=== PATIENT | male | born 1955 | race Two or more races ===

== ENCOUNTER 2021-09-10 19:32 | Emergency (ER) | payer OTHER ==
[~2021-09-10] VITALS: Ht 170.2 cm; Wt 74.8 kg
[2021-09-10 22:21] VITALS: BP 193/97
[2021-09-10 22:32] LABS: Basophils # (auto) 0.1 10 ^3/uL (0-0.2); Basophils % (auto) 0.7 % (0.0-2.0); Eosinophils # (auto) 0.3 10 ^3/uL (0-0.8); Eosinophils % (auto) 3.3 % (0.0-7.0); Hematocrit 40.7 % (41.0-53.0); Hemoglobin 13.7 g/dL (13.5-17.5); Lymphocytes # (auto) 1.5 10 ^3/uL (0.4-5.4); Lymphocytes % (auto) 15.2 % (10.0-50.0); Mean Corpuscular Hemoglobin 31.9 pg (28.0-32.0); Mean Corpuscular Hgb Conc. 33.7 g/dL (32.0-36.0); Mean Corpuscular Volume 94.8 fL (80.0-100.0); Monocytes # (auto) 1.1 10 ^3/uL (0-1.3); Monocytes % (auto) 10.9 % (0.0-12.0); Neutrophils # (auto) 6.7 10 ^3/uL (1.6-8.6); Neutrophils % (auto) 69.9 % (37.0-80.0); Nucleated Red Blood Cells % 0.1 %; Red Blood Cells 4.29 10^6/uL (4.5-5.90); Red Cell Distribution Width 12.3 % (11.8-14.3); White Blood Cell 9.6 10^3/uL (4.4-10.8)
[2021-09-10 22:41] LABS: Urine Bacteria NONE SEEN /hpf (None Seen); Urine Blood Negative /uL (Negative); Urine Specific Gravity 1.002 (1.001-1.035); Urine WBC <1 /hpf (0 - 3)
[2021-09-10 22:46] LABS: Alcohol, Urine < 3.0 mg/dL (0-10); Amphetamine Screen, Urine NEGATIVE (NEGATIVE); Barbiturate Scree,Urine NEGATIVE (NEGATIVE); Benzodiazephine Screen, Urine NEGATIVE (NEGATIVE); Cannabinoid Screen, Urine NEGATIVE (NEGATIVE); Cocaine Screen, Urine NEGATIVE (NEGATIVE); Opiate Scree,Urine NEGATIVE (NEGATIVE); Phencyclidine Screen, Urine NEGATIVE (NEGATIVE)
[2021-09-10 22:46] LABS: Albumin 3.8 g/dL (3.4-5.0); Calcium 8.4 mg/dL (8.5-10.1)
[2021-09-10 22:51] LABS: BUN/Creatinine Ratio 7.5; Bilirubin, Total 0.5 mg/dL (0.2-1.0); Magnesium 2.1 mg/dL (1.6-2.6); Total Protein 7.8 g/dL (6.4-8.2)
== END 2021-09-10 22:37 | disposition short-term general hospital (02) ==
LOC: ER 19:32
DX: R41.82 Altered mental status, unspecified (principal); Z20.822 Contact with and (suspected) exposure to COVID-19
CPT/HCPCS: 36415; 70450; 71045; 80053; 80307; 80320; 81001; 83735; 85025; 86850; 86900; 86901; 87426; 93005; 96365

== ENCOUNTER 2025-01-17 13:27 | Emergency (ER) | payer MEDICARE, MEDICAID ==
[~2025-01-17] VITALS: Ht 175.3 cm; Wt 68.2 kg
--- NOTE | 2025-01-17 13:42 | ED.PDOC ---
History of Present Illness HPI Comments 69 year old male presents to the ED via EMS with a chief complaint of enlarged lymph node onset 3 days. Per EMS, patient had dental extraction about 2 weeks ago, since then was experiencing mild discomfort and for the past 3 days noticed swelling and pain worsened. states for the past 2 months patient has been experiencing unexplained weight loss. This morning, patient states pain worsen, experiencing syncopal episode witnessed by , an episode of nausea. Upon EMS arrival, BP was 70/35, 500 ccs fluids was given in route, BP improved to 117 systolic. Patient states he does not want to be admitted, requesting prescription of antibiotics, wants to sign out AMA. PMHx CVA RT side deficits. No other symptoms or modifying factors present at this time. Time Seen by MD: 13:30 Reviewed Notes: Medications, Allergies Allergies: Coded Allergies: NO KNOWN ALLERGIES (Unverified , 09/10/21) Information Source: Patient, Emergency Med Personnel, Spouse Mode of Arrival: EMS Severity: Moderate Timing: Days Duration: Since onset Prehospital treatment: None Past Medical History PAST MEDICAL HISTORY: CVA Surgical History (Other): knee surgery Family History Family History: Reviewed,noncontributory to illness Social History Smoker: Non-Smoker Alcohol: Denies ETOH Use Drugs: Denies Drug Use Lives In: Home EENTM: reports: others (enalrged lymph node); denies: blurred vision, double vision, ear bleeding, ear discharge, ear drainage, ear pain, ear ringing, eye pain, eye redness, hearing loss, mouth pain, mouth swelling, nasal discharge, nose bleeding, nose congestion, nose pain, photophobia, tearing, throat pain, throat swelling, voice changes Respiratory: denies: cough, hemoptysis, orthopnea, SOB at rest, shortness of breath, SOB with excertion, stridor, wheezing, others Cardiovascular: denies: chest pain, dizzy spells, diaphoresis, Dyspnea on exertion, edema, irregular heart beat, left arm pain, lightheadedness, palpitations, PND, syncope, others Gastrointestinal: denies: abdomen distended, abdominal pain, blood streaked bowels, constipated, diarrhea, dysphagia, difficulty swallowing, hematemesis, melena, nausea, poor appetite, poor fluid intake, rectal bleeding, rectal pain, vomiting, others Genitourinary: denies: burning, dysuria, flank pain, frequency, hematuria, incontinence, penile discharge, penile sore, pain, testicle pain, testicle swelling, urgency, others Neurological: reports: others (syncope); denies: dizziness, fainting, headache, left sided numbness, left sided weakness, numbness, paresthesia, pre-existing deficit, right sided numbness, right sided weakness, seizure, speech problems, tingling, tremors, weakness Musculoskeletal: denies: back pain, gout, joint pain, joint swelling, muscle pain, muscle stiffness, neck pain, others Integumetry: denies: bruises, change in color, change in hair/nails, dryness, laceration, lesions, lumps, rash, wounds, others Allergic/Immunocompromised: denies: Difficulty Healing, Frequent Infections, Hives, Itching, others Hematologic/Lymphatic: denies: anemia, blood clots, easy bleeding, easy bruising, swollen glands, others Endocrine: denies: excessive hunger, excessive sweating, excessive thirst, excessive urination, flushing, intolerance to cold, intolerance to heat, unexplained weight gain, unexplained weight loss, others Psychiatric: denies: anxiety, bipolar disorder, depression, hopeless, panic disorder, schizophrenia, sleepless, suicidal, others All Other Systems: Reviewed and Negative Physical Exam General Appearance: Moderate Distress, Normal HEENT: Normal ENT Inspection, Pharynx Normal, TMs Normal Neck: Full Range of Motion, Other (Lymph gland submandibular enlarged) Respiratory: Chest Non-Tender, Lungs Clear, No Accessory Muscle Use, No Respiratory Distress, Normal Breath Sounds Cardiovascular: No Edema, No JVD, No Murmur, No Gallop, Normal Peripheral Pulses, Regular Rate/Rhythm Breast Exam: Deferred Gastrointestinal: No Organomegaly, Non Tender, No Pulsatile Mass, Normal Bowel Sounds, Soft Genitalia: Deferred Pelvic: Deferred Rectal: Deferred Extremities: No calf tenderness, Normal capillary refill, Normal inspection, Normal range of motion, Non-tender, No pedal edema Musculoskeletal : Apperance: Normal Neurologic: Alert, solder leveler printed circuit boards II-XII nml as Tested, No Motor Deficits, Normal Affect, Normal Mood, No Sensory Deficits Cerebellar Function: NOT DONE Reflexes: NOT DONE Skin: Dry, Normal Color, Warm Peripheral Pulses: 3+ Radial (R), 3+ Radial (L) Lymphatic: No Adenopathy Was a procedure done? Was a procedure done?: No Differential Dx Considerations may include: Lymphangitis Dental abscess X-Ray, Labs, Meds, VS Vital Signs Date Time Temp Pulse Resp B/P (MAP) Pulse Ox O2 Delivery O2 Flow Rate FiO2 01/17/25 14:16 71 18 98 Room Air* 0 21 01/17/25 14:16 98.2 71 18 136/69 (91) 98 98.2 01/17/25 13:30 97.7 65 18 114/54 (74) 97 97.7 Current Medications Medications (Trade) Dose Ordered Sig/Marilee Route Start Time Stop Time Status Last Admin Ceftriaxone Sodium 50 ml @ 100 mls/hr ONCE ONCE IV 01/17/25 13:45 01/17/25 14:14 DC 01/17/25 14:05 Patient alert pain Came in because of swelling left side of neck. All started after dental procedure. Vitals stable. Insists on leaving. Was given Rocephin. Was given clindamycin. Was given prescription of Augmentin antibiotic. Explained to the patient to be transferred to maxillofacial. Family insisted on going home. Time of 1ST Reevaluation: 14:00 Reevaluation 1ST: Unchanged Patient Education/Counseling: Diagnosis, Treatment, Prognosis Family Education/Counseling: Diagnosis, Treatment, Prognosis SEPSIS Sepsis Screen Physician Orders Clindamycin 300mg Iv (Cleocin Iv) (01/17/25 13:45) Vital Signs Date Time Temp Pulse Resp B/P (MAP) Pulse Ox O2 Delivery O2 Flow Rate FiO2 01/17/25 14:16 71 18 98 Room Air* 0 21 01/17/25 14:16 98.2 71 18 136/69 (91) 98 98.2 01/17/25 13:30 97.7 65 18 114/54 (74) 97 97.7 Medications Medications Dose Ordered Sig/Marilee Route Start Time Stop Time Status Last Admin Dose Admin Ceftriaxone Sodium 50 ml @ 100 mls/hr ONCE ONCE IV 01/17/25 13:45 01/17/25 14:14 DC 01/17/25 14:05 Departure 1 Departure Time of Disposition: 14:23 Impression: Primary Impression: Dental abscess Disposition: LEFT AGAINST MEDICAL ADVICE Condition: Good e-Prescriptions Amoxicillin & Pot Clavulanate (AUGMENTIN TABLET) 875 Mg Tb 875 MG PO BID for 10 Days, #20 TAB Prov: HEATHER SANDHU MD 01/17/25 Discharged With: Self Critical Care Note Critical Care Time?: No Stability Stability form required: No Heart Score Heart Score: Heart Score Response (Comments) Value History N/A 0 EKG N/A 0 Age N/A 0 Risk Factors N/A 0 Troponin N/A 0 Total 0 I personally scribed for HEATHER SANDHU MD ([email or web address]) on 01/17/25 at 13:42. Electronically submitted by Keli Manrique ([email or web address]). HEATHER SANDHU MD Jan 17, 2025 13:42
[2025-01-17] MEDS: cefTRIAXone 1GM/50ML D5W 50 ML IV ONE (14:05)
[2025-01-17 14:16] VITALS: BP 136/69; PULSE 71; RESP 18; TEMP 98.2; O2SAT 98
[2025-01-17] MEDS ORDERED: AUG875T PO (14:24)
[2025-01-17] MEDS: CLINDAMYCIN 300MG IV 50 ML IV ONE (14:44)
[2025-01-17] MEDS: KETOROLAC TROMETH 30 MG/ML 1ML VIAL IV ONE (14:59)
== END 2025-01-17 15:45 | disposition left against medical advice (07) ==
LOC: EDBD 13:27 → ER 13:27
DX: K04.7 Periapical abscess without sinus (principal); Z86.73 Personal history of transient ischemic attack (TIA), and cerebral infarction without residual deficits; Z98.890 Other specified postprocedural states
CPT/HCPCS: 96365; 96367; 96375; 99284; J0696; J1885; J3490

== ENCOUNTER 2025-01-23 21:27 | Emergency (ER) | payer MEDICARE, MEDICAID ==
[~2025-01-23] VITALS: Ht 170.2 cm; Wt 63.0 kg
[~2025-01-23 21:27] MED LIST: AUG875T PO
[2025-01-23 21:58] VITALS: PULSE 54; RESP 14; O2SAT 100
--- NOTE | 2025-01-23 22:32 | ED.PDOC ---
History of Present Illness HPI Comments 69 y/o M with history of CVA w/right sided deficits BIBA from home for near syncopal episode. Per EMS report, called after witnessing the patient having a near-syncopal episode after becoming dizzy and sitting down on the bed. Pt reportedly did not lose consciousness. Pt states he felt dizzy, fell onto his side on the bed, spilling a glass of water he was holding. Pt denies injury or LOC. EMS reports patient was bradycardic and hypotensive initially and was given 500ml NS bolus en route. Patient was seen in this ED on 01/17/25 for a mass in his right submandibular area that he stated began after a dental procedure 2 weeks prior. [place] was recommended for [place] [facility] [place]. He was txed in ED with IV abx and prescribed augmentin. Pt currently complains of headache. He denies having any current new focal weakness, dizziness, lightheadedness, fever, chills, or other associated symptoms. Chief Complaint: Syncope Time Seen by MD: 21:30 Reviewed Notes: Nurses Notes, Kier Boiler Notes, Medications, Allergies Allergies: Coded Allergies: NO KNOWN ALLERGIES (Unverified , 09/10/21) Home Meds Active Scripts Amoxicillin & Pot Clavulanate (AUGMENTIN TABLET) 875 Mg Tb, 875 MG PO BID for 10 Days, #20 TAB Prov:HEATHER SANDHU MD 01/17/25 Information Source: Patient, Emergency Med Personnel Mode of Arrival: EMS Severity: Moderate Timing: Hours Duration: Since onset Prehospital treatment: None Past Medical History PAST MEDICAL HISTORY: CVA (right-sided deficits ) Past Medical History (Other): left-lower jaw mass Surgical History (Other): knee Family History Family History: Reviewed,noncontributory to illness Social History Smoker: Non-Smoker Alcohol: Denies ETOH Use Drugs: Denies Drug Use Lives In: Home All Other Systems: Reviewed and Negative (Comprehensive review of systems are negative unless otherwise stated in HPI) Physical Exam General Appearance: No Apparent Distress HEENT: PERRL/EOMI, Pharynx Normal Neck: Full Range of Motion, Other (firm/tender L mandibular/submandibular mass extending to L lateral neck. No erythema, fluctuance or d/c.) Respiratory: Lungs Clear, No Accessory Muscle Use, No Respiratory Distress, Normal Breath Sounds Cardiovascular: No Edema, No JVD, Regular Rate/Rhythm Breast Exam: Deferred Gastrointestinal: Non Tender, Soft Genitalia: Deferred Pelvic: Deferred Rectal: Deferred Extremities: Normal inspection, Normal range of motion, Non-tender, No pedal edema Neurologic: Alert (Oriented x4), Normal Affect, Normal Mood, Other (moves all extremities, no facial droop or dysarthria) Cerebellar Function: NOT DONE Reflexes: NOT DONE Skin: Dry, Normal Color, Warm Lymphatic: NOT DONE Was a procedure done? Was a procedure done?: No EKG EKG : Comments Sinus rhythm, rate 66, normal intervals, normal axis, possible old anteroseptal infarct, no ST/T changes. Differential Dx Considerations may include: Vasovagal syncope, hypovolemia/orthostasis, CVA, TIA, arrhythmia, OH, infection, among others X-Ray, Labs, Meds, VS Vital Signs Date Time Temp Pulse Resp B/P (MAP) Pulse Ox O2 Delivery O2 Flow Rate FiO2 01/24/25 04:03 69/34 01/24/25 04:00 58 01/24/25 03:55 44 16 67/34 (45) 100 01/24/25 03:55 67/34 01/24/25 03:32 28 16 69/37 (48) 100 01/24/25 00:00 80 01/24/25 00:00 98 13 141/66 (91) 100 01/23/25 21:59 98.4 54 14 109/50 (69) 100 98.4 01/23/25 21:58 54 14 100 Room Air* 0 21 01/23/25 21:47 98.5 50 16 115/61 (79) 98 98.5 01/23/25 21:31 66 Lab Test 01/23/25 23:50 01/23/25 22:55 01/23/25 22:00 Range/Units Urine Color Colorless Yellow Urine Clarity Clear Clear Urine pH 5.5 5.0-9.0 Urine Specific [place] 1.010 1.001-1.035 Urine Protein Negative Negative Urine Ketones Negative Negative Urine Blood Negative Negative /uL Urine Nitrite Negative Negative Urine Bilirubin Negative Negative Urine Urobilinogen Normal Negative mg/dL Urine Leukocyte Esterase Negative Negative /uL Urine RBC 1 0 - 3 /hpf Urine Microscopic WBC 1 0-3 /HPF Urine Squamous Epithelial Cells None seen <5 /hpf Urine Bacteria None seen None Seen /hpf Urine Glucose Normal Normal mg/dL Troponin I High Sensitivity < 3 L < 3 L </=54 ng/L White Blood Count 8.6 4.4-10.8 10^3/uL Red Blood Count 3.77 L 4.5-5.90 10^6/uL Hemoglobin 11.8 L 13.5-17.5 g/dL Hematocrit 33.7 L 41.0-53.0 % Mean Corpuscular Volume 89.4 80.0-100.0 fL Mean Corpuscular Hemoglobin 31.2 28.0-32.0 pg Mean Corpuscular Hemoglobin Concent 34.9 32.0-36.0 g/dL Red Cell Distribution Width 13.8 11.8-14.3 % Platelet Count 430 140-450 10^3/uL Mean Platelet Volume 7.0 6.9-10.8 fL Neutrophils (%) (Auto) 66.6 37.0-80.0 % Lymphocytes (%) (Auto) 19.6 10.0-50.0 % Monocytes (%) (Auto) 10.7 0.0-12.0 % Eosinophils (%) (Auto) 2.7 0.0-7.0 % Basophils (%) (Auto) 0.4 0.0-2.0 % Neutrophils # (Auto) 5.7 1.6-8.6 10 ^3/uL Lymphocytes # (Auto) 1.7 0.4-5.4 10 ^3/uL Monocytes # (Auto) 0.9 0-1.3 10 ^3/uL Eosinophils # (Auto) 0.2 0-0.8 10 ^3/uL Basophils # (Auto) 0 0-0.2 10 ^3/uL Nucleated Red Blood Cells 0.1 % Sodium Level 136 136-145 mmol/L Potassium Level 4.2 3.5-5.1 mmol/L Chloride Level 101 98-107 mmol/L Carbon Dioxide Level 28 20-31 mmol/L Anion Gap 7 5-15 Blood Urea Nitrogen 13 9-23 mg/dL Creatinine 0.73 0.700-1.30 mg/dL Glomerular Filtration Rate Calc 100 >90 mL/min BUN/Creatinine Ratio 17.8 10.0-20.0 Serum Glucose 121 H 74-106 mg/dL Calcium Level 9.3 8.7-10.4 mg/dL B-Type Natriuretic Peptide 30.65 0-100 pg/mL Current Medications Medications (Trade) Dose Ordered Sig/Marilee Route Start Time Stop Time Status Last Admin Sodium Chloride 2,000 ml @ 1,000 mls/hr Q2H ONCE IV 01/23/25 21:45 01/23/25 23:44 DC 01/23/25 22:54 Acetaminophen (Tylenol Tablet Or Capsule) 1,000 mg ONCE ONCE PO 01/23/25 21:45 01/23/25 21:48 DC 01/23/25 22:54 Clindamycin Phosphate 50 ml @ 50 mls/hr ONCE ONCE IV 01/24/25 00:00 01/24/25 00:59 DC 01/24/25 00:46 Ceftriaxone Sodium 50 ml @ 100 mls/hr ONCE ONCE IV 01/24/25 00:00 01/24/25 00:29 DC 01/24/25 00:46 Acetaminophen (Tylenol Tablet Or Capsule) 1,000 mg ONCE ONCE PO 01/24/25 03:15 01/24/25 03:16 DC 01/24/25 03:17 Dopamine HCl/ Dextrose 250 ml @ 11.813 mls/ hr [id number] ONCE IV 01/24/25 03:30 01/25/25 00:39 01/24/25 03:55 PROCEDURE(s): HWOCT - HEAD WITHOUT CONTRAST REASON: near syncope ORDER NUMBER(s): [id number], ACCESSION NUMBER(s): [id number] EXAM: CT HEAD WITHOUT CONTRAST INDICATION: near syncope TECHNIQUE: CT of the head without intravenous contrast. Radiation Dose Information: CT Dose: CTDI volume is 53.99 mGy. Dose-length product is 863.9 mGy*cm The dose indicators for CT are the volume Computed Tomography (CT) Dose Index (CTDIvol) and the Dose Length Product (DLP), and are measured in units of mGy and mGy-cm, respectively. These indicators are not patient dose, but values generated from the CT scanner acquisition factors. The report includes radiation exposure data for exposures received during this examination. COMPARISON: HEAD WITHOUT CONTRAST on DOS: 09/10/21 FINDINGS: There is no evidence of acute intracranial hemorrhage, extra-axial collection, mass effect, midline shift, herniation or hydrocephalus. The ventricles, sulci and cisterns are age appropriate. The eduardo-white differentiation is intact. Patchy periventricular and subcortical white matter hypoattenuation is nonspecific but may be related to small vessel ischemic disease. The visualized paranasal sinuses and mastoid air cells are clear. The surrounding soft tissues and osseous structures are unremarkable. IMPRESSION: 1. No acute intracranial abnormality. EDURE(s): CXRP - CHEST PORTABLE REASON: near syncope ORDER NUMBER(s): [id number], ACCESSION NUMBER(s): [id number] CHEST RADIOGRAPH Indication: near syncope Technique: Single frontal view of the chest was obtained Comparison: CHEST PORTABLE on DOS: 09/10/21 FINDINGS: Lines and Tubes: None Lungs: No focal consolidation. Pleura: No effusion. No pneumothorax. Cardiomediastinal contours: Unremarkable Bones: No acute osseous abnormality. IMPRESSION: 1. No acute cardiopulmonary disease. [place] [id number] Ph: [phone] DIAGNOSTIC IMAGING Diagnostic Imaging Report : [id number] Signed PATIENT: ELIUD CASPER ACCT: [id number] UNIT: [id number] : 1955 LOC: ER ROOM / BED: / AGE / SEX: 69 / M ADM STATUS: REG ER SERVICE 43 ORDERING PHYSICIAN: JOY HAWK MD PROCEDURE(s): FAC2C - MAXILLOFACIAL WITHOUT REASON: L jaw mass ORDER NUMBER(s): [id number], ACCESSION NUMBER(s): [id number] HISTORY: L jaw mass TECHNIQUE: Nonenhanced axial images through the facial bones with coronal and sagittal MPR. Radiation Dose Information: CT Dose: CTDI volume is 56.53 mGy. Dose-length product is 1273.32 mGy*cm COMPARISON: None FINDINGS: Mandible: Left submandibular mass measures 5.6 x 5.5 cm with a relatively well-circumscribed collection of near water attenuation material inferiorly measuring 3.1 x 1.9 cm, suspicious for abscess. There is moderate associated mass effect and attenuation of the corresponding airway. Multiple other abnormally enlarged lymph nodes throughout the bilateral cervical stations, for example, 3.1 x 1.8 cm right level IIa submandibular. Maxilla: Unremarkable Zygomatic arches: Unremarkable Nasal bone: Unremarkable Orbits: Unremarkable Sinuses: Mild diffuse mucosal thickening of the paranasal sinuses. Facial swelling: None IMPRESSION: 1. Dominant left submandibular mass and evidence of central necrosis inferiorly with well-circumscribed fluid collection consistent with abscess. There is corresponding airway attenuation secondary to mass effect and multiple abnormally enlarged bilateral cervical lymph nodes are additionally noted. 2. No acute facial fractures. Radiation optimization: All CT scans at this facility use at least one of these dose optimization techniques: automated exposure control mA and/or kV adjustment per patient size (includes targeted exams where dose is matched to clinical indication) or iterative reconstruction. ATED BY: SCOT REDDY MD DICTATED DATE/TIME: 01/23/25 2598 ORDERING PHYSICIAN: JOY HAWK MD PROCEDURE(s): NKICT - NECK WITHOUT CONTRAST REASON: L neck mass ORDER NUMBER(s): [id number], ACCESSION NUMBER(s): [id number] EXAM: CT NECK WITHOUT CONTRAST INDICATION: L neck mass Exam Date: 01/23/2025 10:08 PM COMPARISON: None TECHNIQUE: CT of the neck without intravenous contrast. RADIATION DOSE: CTDIvol: 15.23 mGy, DLP: 470.76 mGy*cm FINDINGS: Left submandibular mass measures 5.6 x 5.5 cm with a relatively well- circumscribed collection of near water attenuation material inferiorly measuring 3.1 x 1.9 cm, suspicious for abscess. There is moderate associated mass effect and attenuation of the corresponding airway. Multiple other abnormally enlarged lymph nodes throughout the bilateral cervical stations, for example, 3.1 x 1.8 cm right level IIa submandibular. The fat planes of the neck appear intact. The airway and larynx are unremarkable. The parotid, submandibular and thyroid glands are unremarkable. The vascular structures of the neck appear patent. Minimal bilateral maxillary mucosal sinus disease. The remaining paranasal sinuses are clear. The visualized lung apices are clear. The limited visualized portions of the brain are unremarkable. The osseous structures are unremarkable. IMPRESSION: 1. Dominant left submandibular mass and evidence of central necrosis inferiorly with well-circumscribed fluid collection consistent with abscess. There is corresponding airway attenuation secondary to mass effect and multiple abnormally enlarged bilateral cervical lymph nodes are additionally noted. X-Ray, Labs, Meds, VS Comment 69-year-old male with a history of CVA and residual right-sided weakness, seen here 6 days ago for syncope and a left submandibular mass, currently on Augmentin, brought in by EMS from home with recurrent syncope Vitals remarkable for heart rate 50 Exam remarkable for left mandibular/submandibular mass extending to the left neck Rhythm strip independently interpreted by me: Sinus rhythm, rate 66, no ectopy. CT head unremarkable CT maxillofacial IMPRESSION: 1. Dominant left submandibular mass and evidence of central necrosis inferiorly with well-circumscribed fluid collection consistent with abscess. There is cor responding airway attenuation secondary to mass effect and multiple abnormally enlarged bilateral cervical lymph nodes are additionally noted. 2. No acute facial fractures. CT neck soft tissue IMPRESSION: 1. Dominant left submandibular mass and evidence of central necrosis inferiorly with well-circumscribed fluid collection consistent with abscess. There is corresponding airway attenuation secondary to mass effect and multiple abnormally enlarged bilateral cervical lymph nodes are additionally noted. Chest x-ray unremarkable CBC, basic metabolic panel, BNP and 2 serial troponins unremarkable Patient treated with the following in the ED: 2 L 0.9 normal saline IV bolus, Tylenol 1 g p.o. Rocephin 1 g IV, clindamycin 90 0 mg IV On re-evaluation, patient is alert, no new neurologic changes, stable vitals. Plan is to transfer the patient for higher level of care ENT evaluation. Case discussed with the transfer center at [facility], who agreed to accept the patient. While awaiting transfer, the patient's heart rate was noted to drop to the 20s, as low as 28. Blood pressure was stable. Patient and alert throughout. Low- dose dopamine infusion was started. Prior to initiation of the dopamine infusion, it was noted that when the patient was asked to turn his head to the right, his heart rate increased. This points toward carotid sinus syndrome as a cause of his bradycardia and syncope. Time of 1ST Reevaluation: 22:00 Reevaluation 1ST: Unchanged Time of 2ND Reevaluation: 04:42 Reevaluation 2ND: Improved Patient Education/Counseling: Diagnosis, Treatment, Need For Follow Up Family Education/Counseling: No Family Present SEPSIS Sepsis Screen Physician Orders Chest Portable (01/23/25 21:44) Head Without Contrast (01/23/25 21:44) Maxillofacial Without (01/23/25 21:44) Neck Without Contrast (01/23/25 21:44) Dopamine 1600mcg/Ml D5w (01/24/25 03:30) Vital Signs Date Time Temp Pulse Resp B/P (MAP) Pulse Ox O2 Delivery O2 Flow Rate FiO2 01/24/25 04:03 69/34 01/24/25 04:00 58 01/24/25 03:55 44 16 67/34 (45) 100 01/24/25 03:55 67/34 01/24/25 03:32 28 16 69/37 (48) 100 01/24/25 00:00 80 01/24/25 00:00 98 13 141/66 (91) 100 01/23/25 21:59 98.4 54 14 109/50 (69) 100 98.4 01/23/25 21:58 54 14 100 Room Air* 0 21 01/23/25 21:47 98.5 50 16 115/61 (79) 98 98.5 01/23/25 21:31 66 Laboratory Tests Test 01/23/25 22:00 White Blood Count 8.6 10^3/uL (4.4-10.8) Medications Medications Dose Ordered Sig/Marilee Route Start Time Stop Time Status Last Admin Dose Admin Acetaminophen 1,000 mg ONCE ONCE PO 01/23/25 21:45 01/23/25 21:48 DC 01/23/25 22:54 Acetaminophen 1,000 mg ONCE ONCE PO 01/24/25 03:15 01/24/25 03:16 DC 01/24/25 03:17 Ceftriaxone Sodium 50 ml @ 100 mls/hr ONCE ONCE IV 01/24/25 00:00 01/24/25 00:29 DC 01/24/25 00:46 Clindamycin Phosphate 50 ml @ 50 mls/hr ONCE ONCE IV 01/24/25 00:00 01/24/25 00:59 DC 01/24/25 00:46 Dopamine HCl/ Dextrose 250 ml @ 11.813 mls/ hr [id number] ONCE IV 01/24/25 03:30 01/25/25 00:39 01/24/25 03:55 Sodium Chloride 2,000 ml @ 1,000 mls/hr Q2H ONCE IV 01/23/25 21:45 01/23/25 23:44 DC 01/23/25 22:54 Departure 1 Departure Time of Disposition: 12:05 Impression: Primary Impression: Syncope Qualified Codes: R55 - Syncope and collapse Additional Impressions: Submandibular abscess Carotid sinus syndrome with bradycardia Disposition: 02 SHORT TERM HOSPITAL Admit to: Tele Condition: Guarded Critical Care Note Critical Care Time?: Yes (45 min-critical care time only) Critical care comment: Critical care time including multiple bedside re-evaluations, review of lab and imaging studies, and discussion of the case with the accepting provider. Patient is high risk for hemodynamic decompensation. Stability Stability form required: No Heart Score Heart Score: Heart Score Response (Comments) Value History N/A 0 EKG N/A 0 Age N/A 0 Risk Factors N/A 0 Troponin N/A 0 Total 0 I personally scribed for JOY HAWK MD ([email or web address]) on 01/23/25 at 22:32. Electronically submitted by Guero Caceres ([email or web address]). JOY HAWK MD Jan 23, 2025 22:32
--- NOTE | 2025-01-23 22:36 | DVH ---
CHEST RADIOGRAPH Indication: near syncope Technique: Single frontal view of the chest was obtained Comparison: CHEST PORTABLE on DOS: 09/10/21 FINDINGS: Lines and Tubes: None Lungs: No focal consolidation. Pleura: No effusion. No pneumothorax. Cardiomediastinal contours: Unremarkable Bones: No acute osseous abnormality. IMPRESSION: 1. No acute cardiopulmonary disease.
[2025-01-23 22:37] LABS: Basophils # (auto) 0 10 ^3/uL (0-0.2); Basophils % (auto) 0.4 % (0.0-2.0); Eosinophils # (auto) 0.2 10 ^3/uL (0-0.8); Eosinophils % (auto) 2.7 % (0.0-7.0); Hematocrit 33.7 % (41.0-53.0); Hemoglobin 11.8 g/dL (13.5-17.5); Lymphocytes # (auto) 1.7 10 ^3/uL (0.4-5.4); Lymphocytes % (auto) 19.6 % (10.0-50.0); Mean Corpuscular Hemoglobin 31.2 pg (28.0-32.0); Mean Corpuscular Hgb Conc. 34.9 g/dL (32.0-36.0); Mean Corpuscular Volume 89.4 fL (80.0-100.0); Monocytes # (auto) 0.9 10 ^3/uL (0-1.3); Monocytes % (auto) 10.7 % (0.0-12.0); Neutrophils # (auto) 5.7 10 ^3/uL (1.6-8.6); Neutrophils % (auto) 66.6 % (37.0-80.0); Nucleated Red Blood Cells % 0.1 %; Platelet Count (auto) 430 10^3/uL (140-450); Red Blood Cells 3.77 10^6/uL (4.5-5.90); Red Cell Distribution Width 13.8 % (11.8-14.3); White Blood Cell 8.6 10^3/uL (4.4-10.8)
--- NOTE | 2025-01-23 22:39 | DVH ---
EXAM: CT HEAD WITHOUT CONTRAST INDICATION: near syncope TECHNIQUE: CT of the head without intravenous contrast. Radiation Dose Information: CT Dose: CTDI volume is 53.99 mGy. Dose-length product is 863.9 mGy*cm The dose indicators for CT are the volume Computed Tomography (CT) Dose Index (CTDIvol) and the Dose Length Product (DLP), and are measured in units of mGy and mGy-cm, respectively. These indicators are not patient dose, but values generated from the CT scanner acquisition factors. The report includes radiation exposure data for exposures received during this examination. COMPARISON: HEAD WITHOUT CONTRAST on DOS: 09/10/21 FINDINGS: There is no evidence of acute intracranial hemorrhage, extra-axial collection, mass effect, midline s hift, herniation or hydrocephalus. The ventricles, sulci and cisterns are age appropriate. The eduardo-white differentiation is intact. Patchy periventricular and subcortical white matter hypoattenuation is nonspecific but may be related to small vessel ischemic disease. The visualized paranasal sinuses and mastoid air cells are clear. The surrounding soft tissues and osseous structures are unremarkable. IMPRESSION: 1. No acute intracranial abnormality.
[2025-01-23 22:42] LABS: Chloride 101 mmol/L (98-107); Potassium 4.2 mmol/L (3.5-5.1); Sodium 136 mmol/L (136-145)
[2025-01-23 22:43] LABS: Anion Gap 7 (5-15); Carbon Dioxide 28 mmol/L (20-31)
[2025-01-23 22:44] LABS: Calcium 9.3 mg/dL (8.7-10.4)
[2025-01-23 22:48] LABS: BUN/Creatinine Ratio 17.8 (10.0-20.0); Blood Urea Nitrogen 13 mg/dL (9-23)
[2025-01-23 22:49] LABS: Glucose 121 mg/dL (74-106)
--- NOTE | 2025-01-23 22:53 | ECG ---
[facility] Test Date: 2025-01-23 Test Time: 21:31:51 Pat Name: ELIUD CASPER Department: ED Room: Gender: M [employer]: ROMARIO : 1955 Requested By: JOY SANTOS Order Number: [id number] Reading MD: Charlie Valdez Measurements Intervals [place] Rate: 66 P: 69 SC: 189 QRS: 66 QRSD: 99 T: 43 QT: 401 QTc: 421 Interpretive Statements Sinus rhythm Borderline ST elevation, inferior leads Electronically Signed On 01-28-2025 9:39:44 PDT by Charlie Valdez Please click the below link to view image of tracing.
[2025-01-23] MEDS: SODIUM CHLORIDE 0.9% 2,000 ML IV ONE (22:54)
[2025-01-23] MEDS: ACETAMINOPHEN 500 MG TAB or CAP PO ONE (22:54)
--- NOTE | 2025-01-23 23:41 | DVH ---
EXAM: CT NECK WITHOUT CONTRAST INDICATION: L neck mass Exam Date: 01/23/2025 10:08 PM COMPARISON: None TECHNIQUE: CT of the neck without intravenous contrast. RADIATION DOSE: CTDIvol: 15.23 mGy, DLP: 470.76 mGy*cm FINDINGS: Left submandibular mass measures 5.6 x 5.5 cm with a relatively well-circumscribed collection of near water attenuation material inferiorly measuring 3.1 x 1.9 cm, suspicious for abscess. There is moder ate associated mass effect and attenuation of the corresponding airway. Multiple other abnormally enlarged lymph nodes throughout the bilateral cervical stations, for exampl e, 3.1 x 1.8 cm right level IIa submandibular. The fat planes of the neck appear intact. The airway and larynx are unremarkable. The parotid, submandibular and thyroid glands are unremarkable. The vascular structures of the neck appear patent. Minimal bilateral maxillary mucosal sinus disease. The remaining paranasal sinuses are clear. The visualized lung apices are clear. The limited visualized portions of the brain are unremarkable. The osseous structures are unremarkable. IMPRESSION: 1. Dominant left submandibular mass and evidence of central necrosis inferiorly with well-circumscrib ed fluid collection consistent with abscess. There is corresponding airway attenuation secondary to mass effect and multiple abnormally enlarged bilateral cervical lymph nodes are additionally noted.
--- NOTE | 2025-01-23 23:43 | DVH ---
HISTORY: L jaw mass TECHNIQUE: Nonenhanced axial images through the facial bones with coronal and sagittal MPR. Radiation Dose Information: CT Dose: CTDI volume is 56.53 mGy. Dose-length product is 1273.32 mGy*cm COMPARISON: None FINDINGS: Mandible: Left submandibular mass measures 5.6 x 5.5 cm with a relatively well-circumscribed collec tion of near water attenuation material inferiorly measuring 3.1 x 1.9 cm, suspicious for abscess. Th ere is moderate associated mass effect and attenuation of the corresponding airway. Multiple other abnormally enlarged lymph nodes throughout the bilateral cervical stations, for exampl e, 3.1 x 1.8 cm right level IIa submandibular. Maxilla: Unremarkable Zygomatic arches: Unremarkable Nasal bone: Unremarkable Orbits: Unremarkable Sinuses: Mild diffuse mucosal thickening of the paranasal sinuses. Facial swelling: None IMPRESSION: 1. Dominant left submandibular mass and evidence of central necrosis inferiorly with well-circumscrib ed fluid collection consistent with abscess. There is corresponding airway attenuation secondary to m ass effect and multiple abnormally enlarged bilateral cervical lymph nodes are additionally noted. 2. No acute facial fractures. Radiation optimization: All CT scans at this facility use at least one of these dose optimization yung hniques: automated exposure control mA and/or kV adjustment per patient size (includes targeted exam s where dose is matched to clinical indication) or iterative reconstruction.
[2025-01-23 23:59] LABS: Urine Bacteria None Seen /hpf (None Seen)
[2025-01-24 00:21] LABS: Urine Squamous Epithelial Cell None Seen /hpf (<5); Urine WBC 1 /HPF (0-3)
[2025-01-24 00:22] LABS: Urine Clarity CLEAR (Clear); Urine Color Colorless (Yellow); Urine Protein, UAD Negative (Negative)
[2025-01-24 00:23] LABS: Urine Blood Negative /uL (Negative); Urine Urobilinogen Normal (Negative); Urine pH 5.5 (5.0-9.0)
[2025-01-24] MEDS: CLINDAMYCIN 900MG IV 50 ML IV ONE (00:46)
[2025-01-24] MEDS: cefTRIAXone 1GM/50ML D5W 50 ML IV ONE (00:46)
[2025-01-24] MEDS: ACETAMINOPHEN 500 MG TAB or CAP PO ONE (03:17)
[2025-01-24] MEDS: DOPamine 1600MCG/ML D5W 250 ML IV ONE ×2 (03:55→04:03)
[2025-01-24 07:35] VITALS: BP 136/67; PULSE 74; RESP 15; TEMP 98.4; O2SAT 97
== END 2025-01-24 09:59 | disposition short-term general hospital (02) ==
LOC: ER 21:27 → EDBD 21:27 → ER 01-24 09:59
DX: I49.5 Sick sinus syndrome (principal); R55 Syncope and collapse; K12.2 Cellulitis and abscess of mouth; Z86.73 Personal history of transient ischemic attack (TIA), and cerebral infarction without residual deficits; Z79.899 Other long term (current) drug therapy
CPT/HCPCS: 36415; 70450; 70486; 70490; 71045; 80048; 81001; 83880; 84484; 85025; 93005; 96361; 96374; 96375; 99291; J0696; J1265; J3490; J7030

== ENCOUNTER 2025-05-01 21:04 | Emergency (ER) | payer MEDICARE, MEDICAID ==
[2025-05-01 21:12] VITALS: BP 163/81; PULSE 120; RESP 16; TEMP 98.6; O2SAT 92
--- NOTE | 2025-05-01 22:35 | ED.PDOC ---
History of Present Illness HPI Comments 70 y/o underweight M presents with spouse for c/c of generalized weakness, constipation, and poor appetite. Patient and spouse are poor historians. Spouse reports on patient's condition deteriorating following recent 'tonsil' cancer diagnosis during previous hospital visit 1x month ago. She comments on patient not receiving any current outpatient oncology treatment and inquires on the patient being impacted, currently. No further acute symptoms reported. Chief Complaint: Constipation Time Seen by MD: 22:10 Reviewed Notes: Nurses Notes, Medications, Allergies Allergies: Coded Allergies: Aspirin (Verified Allergy, Unknown, 05/01/25) Hydromorphone (Verified Allergy, Unknown, 05/01/25) Morphine (Verified Allergy, Unknown, 05/01/25) Prednisone (Verified Allergy, Unknown, 05/01/25) Home Meds Active Scripts Amoxicillin & Pot Clavulanate (AUGMENTIN TABLET) 875 Mg Tb, 875 MG PO BID for 10 Days, #20 TAB Prov:HEATHER SANDHU MD 01/17/25 Information Source: Patient, Spouse Mode of Arrival: Wheelchair Severity: Moderate Timing: Weeks Duration: Since onset Prehospital treatment: None Past Medical History PAST MEDICAL HISTORY: Cancer (tonsil cancer), CVA Surgical History: Denies all surgeries Family History Family History: Reviewed,noncontributory to illness Social History Smoker: Non-Smoker Alcohol: Denies ETOH Use Drugs: Denies Drug Use Lives In: Home All Other Systems: Reviewed and Negative (Comprehensive systems review obtained and negative except for what is stated in the HPI.) Physical Exam General Appearance: Moderate Distress, Thin HEENT: Normal ENT Inspection, Pharynx Normal, TMs Normal Neck: Full Range of Motion, Non-Tender, Normal, Normal Inspection Respiratory: Chest Non-Tender, Lungs Clear, No Accessory Muscle Use, No Respiratory Distress, Normal Breath Sounds Cardiovascular: No Edema, No JVD, No Murmur, No Gallop, Normal Peripheral Pulses, Regular Rate/Rhythm Breast Exam: Deferred Gastrointestinal: No Organomegaly, Non Tender, No Pulsatile Mass, Normal Bowel Sounds, Soft Genitalia: Deferred Pelvic: Deferred Rectal: Deferred Extremities: No calf tenderness Musculoskeletal : Apperance: Normal Neurologic: Alert, No Motor Deficits, No Sensory Deficits Cerebellar Function: NOT DONE Reflexes: NOT DONE Skin: Dry, Normal Color, Warm Peripheral Pulses: 3+ Radial (R), 3+ Radial (L) Lymphatic: No Adenopathy Was a procedure done? Was a procedure done?: No Differential Dx Considerations may include: constipation, noncompliance, metastasis, failure to thrive X-Ray, Labs, Meds, VS Vital Signs Date Time Temp Pulse Resp B/P (MAP) Pulse Ox O2 Delivery O2 Flow Rate FiO2 05/01/25 21:12 98.6 120 16 163/81 92 98.6 Patient alert. He is thin. Tachycardia. Blood pressure elevated Saturation requiring oxygen. Unknown his actual condition. does not know his actual diagnosis. Came in for constipation Sepsis protocol. Explained to the family. Time of 1ST Reevaluation: 22:40 Reevaluation 1ST: Unchanged Patient Education/Counseling: Diagnosis, Treatment, Need For Follow Up Family Education/Counseling: No Family Present SEPSIS Sepsis Screen Date sepsis recognized/suspect: May 01, 2025 Time Sepsis recognized/suspect: 2116 Recent Procedure: No On Antibiotic Therapy: No Respiratory Rate >20: No Heart Rate >90: No Temp<36 C (96.8 F) or >38.3 C: No SBP <90 or MAP <65 mmHG: No New Acute Mental Status Change: No Is the patient on CPAP, BIPAP,: No Vital Signs Date Time Temp Pulse Resp B/P (MAP) Pulse Ox O2 Delivery O2 Flow Rate FiO2 05/01/25 21:12 98.6 120 16 163/81 92 98.6 Departure 1 Departure Time of Disposition: 22:41 Impression: Primary Impression: Sepsis Qualified Codes: A41.9 - Sepsis, unspecified organism Disposition: ADMITTED INPATIENT Admit to: Med Surg Condition: Guarded Critical Care Note Critical Care Time?: Yes (90 min-critical care time only) Stability Stability form required: No Heart Score Heart Score: Heart Score Response (Comments) Value History N/A 0 EKG N/A 0 Age N/A 0 Risk Factors N/A 0 Troponin N/A 0 Total 0 I personally scribed for HEATHER SANDHU MD ([email or web address]) on 05/01/25 at 22:35. Electronically submitted by Guero Caceres ([email or web address]). HEATHER SANDHU MD May 01, 2025 22:35
== END 2025-05-01 22:19 | disposition left against medical advice (07) ==
LOC: ER 21:04
DX: A41.9 Sepsis, unspecified organism (principal); Z88.6 Allergy status to analgesic agent; Z88.5 Allergy status to narcotic agent
CPT/HCPCS: 99291; 99292